=== PATIENT | male | born 1970 | race Caucasian/White ===

== ENCOUNTER 2020-07-05 09:12 | Outpatient (CLI) | payer BC, SELFPAY ==
--- NOTE | ~2020-07-05 | US_ITS ---
US abdomen complete EXAMINATION: US Abdomen Complete INDICATION: Generalized abdomen pain PROCEDURE: Realtime High Resolution abdomen ultrasound. COMPARISON: No prior studies for comparison FINDINGS: Gallbladder within normal limits. No gallstones, pericholecystic fluid, gallbladder wall t hickening or biliary dilatation. Common bile duct measures 3 mm. Liver echotexture within normal limits without focal mass. There is a 12 mm liver cyst. Pancreas with in normal limits. Pancreatic tail is obscured by bowel gas. Spleen is unremarkeable. Renal echotext ure is within normal limits bilaterally without hydronephrosis, contour deforming mass or renal stone . Right kidney measures 9 cm. Left kidney measures 10.9 cm. Visualized aspects of the aorta and IVC are within normal limits. Portal vein is patent. No sonograph ic Guthrie's sign indicated by the technologist. IMPRESSION: 1: Liver cysts measuring 12 mm in the right hepatic lobe. Reviewed, dictated and finalized at location A. [facility]
== END 2020-07-05 09:13 ==
PROVIDERS: Visit Provider Emergency Medicine
DX: R10.9 Unspecified abdominal pain (principal); K76.89 Other specified diseases of liver
CPT/HCPCS: 76700

== ENCOUNTER → 2021-04-06 10:14 | Outpatient (CLI) | payer BC, SELFPAY ==
--- NOTE | ~2021-04-06 | XR_ITS ---
XR thoracic spine 3V DATE: 04/06/2021 10:39 INDICATION: Back pain TECHNIQUE: AP, lateral, swimmer views COMPARISON: None FINDINGS: No fracture or dislocation or bone destruction is detected. The thoracic pedicles are intac t. There is no paraspinal soft tissue thickening. There is minimal degenerative spurring of the thora cic spine. IMPRESSION: Minimal degenerative spurring Reviewed, dictated and finalized at location A.
== END ==
PROVIDERS: PCP Emergency Medicine; Visit Provider Emergency Medicine
DX: M54.50 Low back pain, unspecified (principal); M77.8 Other enthesopathies, not elsewhere classified; M46.06 Spinal enthesopathy, lumbar region
CPT/HCPCS: 72072

== ENCOUNTER → 2021-07-22 03:02 | Outpatient (CLI) | payer BC, SELFPAY ==
[2021-07-22 21:56] LABS: SARS-CoV-2 RNA PCR Negative
== END ==
PROVIDERS: PCP Emergency Medicine; Visit Provider Internal Medicine Gastroenterology
DX: Z01.812 Encounter for preprocedural laboratory examination (principal); Z20.822 Contact with and (suspected) exposure to COVID-19
CPT/HCPCS: C9803; U0003; U0005

== ENCOUNTER 2021-07-25 00:55 | Day surgery (SDC) | payer BC, SELFPAY ==
[2021-07-13 11:05] VITALS: BMI 21.2
[2021-07-25 09:42] VITALS: BP 110/70; PULSE 84; RESP 18; TEMP 36.3; O2SAT 99; BMI 22.6
[2021-07-25] MEDS: LACTATED RINGERS 1,000 ML 150 ML IV CONT (10:04)
--- NOTE | 2021-07-25 10:07 | P.PNAN_ITS ---
Anes - Initial Pre Proc Eval Procedure: Operation Date: 07/25/21 11:00 Proposed Procedures p Screening Colonoscopy - Ruben Cruz MD Date/Time: 07/25/21 10:07 Surgeon: Ruben Cruz MD Pre Op Diagnosis: neoplasm screening Patient Data Age: 51 Gender: M Height: 1.78 m Weight: 71.5 kg Last Vital Signs Temp 36.3 C L 07/25/21 09:42 Pulse 84 07/25/21 09:42 Resp 18 07/25/21 09:42 BP 110/70 07/25/21 09:42 Pulse Ox 99 07/25/21 09:42 Allergies Allergy/AdvReac Type Severity Reaction Status Date / Time No Known Allergies Allergy Verified 07/25/21 09:50 Home Medications Medication Instructions Recorded Confirmed Type gabapentin 300 mg PO PRN PRN 07/13/21 07/25/21 History oxycodone 5 mg PO BID 07/13/21 07/25/21 History rosuvastatin 10 mg PO DAILY 07/13/21 07/25/21 History Patient hx anesthesia problems: none Family hx anesthesia problems: none Results Review: All pre-operative results and documents have been reviewed as part of the pre-operative evaluation. FOR[facility]LY [facility], [facility] Past Medical History Medical History (Updated 07/25/21 @ 10:09 by Denilson Reyes MD) Anxiety Hyperlipidemia Lung cancer SHIVANI (obstructive sleep apnea) Family History Family History (Updated 06/04/17 @ 13:07 by DOCTOR UNKNOWN) Other Diabetes mellitus Family history of coronary artery disease Hypertension Social History Social History Smoking packs per day: 2 Smoking cigarettes per day: 40.0 Years smoked: 30 Smoking pack-years: 60.00 Smoking status: Former smoker Tobacco type: cigarettes Smoking end date: 07/02/16 Alcohol intake: former Alcohol use details: no alcohol use for 9 years, off and on heavy drinking prior to that Substance use: current Substance use type: marijuana Other substance usage details: daily use marijuana Living arrangements: with family Additional living arrangements comments: patient is , lives with spouse Spiritual care concerns: No Anes - Eval Final PreProcedure Day of Procedure 07/25/21 10:07 Patient weight: normal Heart: regular rate and rhythm Lungs: clear to auscultation and normal air movement Airway: Mallampati scale class II Neurological: alert and oriented Last oral intake: >/= 8 hours ASA classification: III Emergent: no Anesthetic plan: proceed Anesthesia type and monitoring: general GIVS Results Review: All pre-operative results and documents have been reviewed as part of the pre-operative evaluation. Informed Consent: The patient's anesthetic plan and its attendant risks and benefits were discussed with the patient/family/POA. Questions were solicited a nd answers provided to the satisfaction of the patient/family/POA.
--- NOTE | 2021-07-25 10:18 | PM.HPGS ---
History of Present Illness History of Present Illness Consent: Risks, benefits, and alternatives have been discussed and questions answered. Patient agrees to proceed with procedure. Chief complaint: neoplasm screening Narrative: Migel Sinclair is a 51 year old male here for first screening colonoscopy Review of Systems Constitutional: Constitutional: Denies headache(s) and Denies weakness Eyes: Eyes: Denies blurry vision ENT: Reports Normal hearing present, Denies headache(s) and Denies neck pain Cardiovascular: Cardiovascular: Denies chest pain and Denies dyspnea Respiratory: Respiratory: Denies dyspnea Gastrointestinal: Gastrointestinal: Reports no additional gastrointestinal complaints Genitourinary: Genitourinary: Denies dysuria Musculoskeletal: Musculoskeletal: Denies neck pain Integumentary/Breasts: Skin/Breast: Denies dry skin Neurologic: Reports Normal hearing present, Denies headache(s) and Denies weakness Psychiatric: Psychiatric: Denies anxiety Endocrine: Endocrine: Denies change in body appearance Hematologic/Lymphatic: Hematologic/Lymphatic: Denies easy bleeding Allergic/Immunologic: Allergic/Immunologic: Denies urticaria PMF Past Medical History Medical History (Updated 07/25/21 @ 10:18 by Ruben Cruz MD) Anxiety Colon cancer screening Hyperlipidemia Lung cancer SHIVANI (obstructive sleep apnea) Family History Family History (Updated 06/04/17 @ 13:07 by DOCTOR UNKNOWN) Other Diabetes mellitus Family history of coronary artery disease Hypertension Social History Social History Smoking packs per day: 2 Smoking cigarettes per day: 40.0 Years smoked: 30 Smoking pack-years: 60.00 Smoking status: Former smoker Tobacco type: cigarettes Smoking end date: 07/02/16 Alcohol intake: former Alcohol use details: no alcohol use for 9 years, off and on heavy drinking prior to that Substance use: current Substance use type: marijuana Other substance usage details: daily use marijuana Living arrangements: with family Additional living arrangements comments: patient is , lives with spouse Spiritual care concerns: No Meds Home Medications and Allergies Home Medications Medication Instructions Recorded Confirmed Type gabapentin 300 mg PO PRN PRN 07/13/21 07/25/21 History oxycodone 5 mg PO BID 07/13/21 07/25/21 History rosuvastatin 10 mg PO DAILY 07/13/21 07/25/21 History Allergies Allergy/AdvReac Type Severity Reaction Status Date / Time No Known Allergies Allergy Verified 07/25/21 09:50 Vital Signs Vital Signs - 24 hr 07/25/21 09:42 Temperature 97.4 F L Pulse Rate 84 Respiratory Rate 18 Blood Pressure 110/70 Pulse Oximetry 99 Exam Const: General: comfortable and no acute distress HENMT: General nose exam: Normal nares present Eyes: General: appearance normal, both eyes and all related structures Neck: Neck: no JVD Resp: Auscultation: clear to auscultation bilaterally Cardio: Rate: regular rate Rhythm: regular rhythm GI: Inspection: non-distended GI Palp: Yes Soft to palpation Skin: General skin exam: normal color Neuro: General: gait normal Speech: normal speech Extrem: General: normal to inspection Psych: Mental Status: mental status grossly normal Assessment and Plan Assessment and plan (1) Colon cancer screening: Code(s): Z12.11 - Encounter for screening for malignant neoplasm of colon Status: Acute Assessment and Plan: colonoscopy
[2021-07-25 10:36] VITALS: BP 92/58; PULSE 76; RESP 16; O2SAT 97
[2021-07-25 10:46] VITALS: BP 93/62; PULSE 69; RESP 18; O2SAT 97
[2021-07-25 10:56] VITALS: BP 99/60; PULSE 80; RESP 21; O2SAT 98
== END 2021-07-25 11:12 | disposition home or self-care (01) ==
PROVIDERS: PCP Emergency Medicine; Visit Provider Internal Medicine Gastroenterology
PROC: 0DJD8ZZ Inspection of Lower Intestinal Tract, Via Natural or Artificial Opening Endoscopic (ICD-10-PCS; CPT 45378; principal; 2021-07-25 11:00)
DX: Z12.11 Encounter for screening for malignant neoplasm of colon (principal); K64.8 Other hemorrhoids; K57.30 Diverticulosis of large intestine without perforation or abscess without bleeding; F41.9 Anxiety disorder, unspecified; E78.5 Hyperlipidemia, unspecified; G47.33 Obstructive sleep apnea (adult) (pediatric); Z87.891 Personal history of nicotine dependence; F12.90 Cannabis use, unspecified, uncomplicated
CPT/HCPCS: 45378; J2704; J7120

== ENCOUNTER → 2022-10-11 10:15 | Outpatient (CLI) | payer BC, SELFPAY ==
--- NOTE | ~2022-10-11 | XR_ITS ---
Lumbosacral Spine: AP and lateral views Clinical History: Pain Findings: The normal lordotic curve is maintained. The vertebral bodies and posterior elements are i ntact. The intervertebral disc spaces are preserved. The sacroiliac joints are normally outlined. Impression: No significant abnormality. Reviewed, dictated and finalized at [facility]. Impression: No significant abnormality.
== END ==
PROVIDERS: PCP Emergency Medicine; Visit Provider Emergency Medicine
DX: M47.896 Other spondylosis, lumbar region (principal)
CPT/HCPCS: 72100

== ENCOUNTER → 2023-01-31 07:55 | Outpatient (CLI) | payer BC, SELFPAY ==
--- NOTE | ~2023-01-31 | US_ITS ---
Abdominal Sonogram: Real-time sonographic imaging of the abdomen was performed. Clinical History: Abdominal pain Findings: The liver appears normal with no evidence of solid mass lesion or bile duct dilatation. Si mple hepatic cyst noted. Main portal vein demonstrates normal direction of flow. The spleen is normal in size without evidence of focal lesion. The gallbladder is well distended, and appears normal wit h no evidence of gallstone or wall thickening. The common bile duct measures 3 mm. The visualized pa ncreas, aorta, and IVC are unremarkable. The right kidney measures 10.2 cm in length and the left ki dney measures 12.0 cm. There is no hydronephrosis or renal calculus. Impression: No significant abnormality seen. Reviewed, dictated and finalized at [facility]. Impression: No significant abnormality seen.
== END ==
PROVIDERS: PCP Emergency Medicine; Visit Provider Emergency Medicine
DX: R10.84 Generalized abdominal pain (principal)
CPT/HCPCS: 76700

== ENCOUNTER 2023-04-13 12:01 | Outpatient (CLI) | payer BC, SELFPAY ==
--- NOTE | ~2023-04-13 | NM_ITS ---
EXAMINATION: NM hepatobiliary wo pharm DATE: 04/13/2023 16:56 INDICATION: Abdominal pain. COMPARISON: Ultrasound 01/31/23 TECHNIQUE: 4.7 mCi Tc-99m mebrofenin (Choletec) was administered intravenously. Scintigraphic images of the abdomen were obtained for one hour. Then, the patient drank 8 oz Ensure, and imaging was cont inued for 60 minutes. FINDINGS: There is normal clearance of radiotracer from the blood pool. There is homogeneous tracer u ptake by the liver. Activity progresses to the bowel and gallbladder. Gallbladder ejection fraction (GBEF) was 63%. Note that with this technique, normal GBEF >= 33%. IMPRESSION: 1. Normal hepatobiliary scintigraphy. Reviewed, dictated and finalized at location A.
== END 2023-04-13 12:02 | disposition home or self-care (01) ==
PROVIDERS: PCP Emergency Medicine; Visit Provider Emergency Medicine
DX: R10.9 Unspecified abdominal pain (principal)
CPT/HCPCS: 78226; A9537